=== PATIENT | female | born 1960 | race Caucasian/White ===

== ENCOUNTER 2019-05-06 19:33 | Emergency (ER) | payer BC, OTHER ==
[~2019-05-06] VITALS: Ht 165.1 cm; Wt 72.6 kg
[2019-05-06 19:45] VITALS: BP_SYST 138
--- NOTE | 2019-05-06 19:48 | NUR ---
Patient triaged and placed in waiting room. VSS and patient appears in no acute distress at this time. Accompanied by , awaiting available bed, and MD notified of need for MSE.
[2019-05-06 20:24] LABS: BASOPHILS # (AUTO) 0.1 K/uL (0.0-0.2); BASOPHILS % (AUTO) 0.5 % (0.0-2.0); EOSINOPHILS # (AUTO) 0.3 K/uL (0.0-0.4); EOSINOPHILS % (AUTO) 2.4 % (0.0-4.0); HEMATOCRIT 40.5 % (36-48); HEMOGLOBIN 13.4 g/dL (12.0-16.0); LYMPHOCYTES # (AUTO) 4.5 K/uL (1.0-5.5); LYMPHOCYTES % (AUTO) 34.2 % (20.5-51.5); MEAN CORPUSCULAR HEMOGLOBIN 31 pg (27-31); MEAN CORPUSCULAR HGB CONC 33 % (32-36); MEAN CORPUSCULAR VOLUME 93 fL (79.0-98.0); MONOCYTES # (AUTO) 0.7 K/uL (0.0-1.0); MONOCYTES % (AUTO) 5.6 % (1.7-9.3); NEUTROPHILS # (AUTO) 7.5 K/uL (1.8-7.7); NEUTROPHILS % (AUTO) 57.3 % (40.0-70.0); PLATELET COUNT (AUTO) 277 K/uL (130-430); RED BLOOD CELL COUNT(AUTO) 4.37 MIL/uL (4.2-6.2); RED CELL DISTRIBUTION WIDTH 14.1 % (9.0-15.0); WHITE BLOOD COUNT (AUTO) 13.1 K/uL (4.8-10.8)
[2019-05-06 20:49] LABS: CALCIUM 9.6 mg/dL (8.4-11.0); CREATININE 1.01 mg/dL (0.55-1.30); POTASSIUM 3.8 mmol/L (3.5-5.1)
[2019-05-06 20:53] LABS: ALBUMIN 3.5 g/dL (3.4-4.8); TOTAL BILIRUBIN 0.2 mg/dL (0.0-1.0)
--- NOTE | 2019-05-06 21:19 | NUR ---
Placed in room 02 . Placed on color television console monitor, blood pressure machine and pulse oximeter. To gown for exam. Side rails up. Report given to Windy CLEARY.
--- NOTE | 2019-05-06 21:20 | NUR ---
ER MD Alas at bedside for medical evaluation.
[2019-05-06] MEDS ORDERED: MORPHINE 4 MG/ML INJ. SYRINGE IVP ONE (21:30)
[2019-05-06] MEDS ORDERED: ONDANSETRON HCL 4 MG/2 ML VIAL IVP ONE (21:30)
[2019-05-06] MEDS ORDERED: DIPHENHYDRAMINE INJ 50 MG/ML VIAL IVP ONE (21:30)
--- NOTE | 2019-05-06 21:30 | NUR ---
Patient AOx4, ambulatory, presents to ER with complaint of NICOLE, N/V, and photosensitivity x 5 days. Patient states she also experienced chest tightness when she had the NICOLE. Patient medicated with Maxalt and Zofran with minimal improvement. Patient has hx of migraines and anxiety. No other symptoms or complaints.
--- NOTE | 2019-05-06 21:40 | NUR ---
# 20 gauge angiocath placed to LAC. Use of asceptic technique. Opsite placed over site. Blood return noted. Flushed with 10 cc of normal saline. No evidence of infiltration noted. Patient tolerated well.
--- NOTE | 2019-05-06 22:20 | NUR ---
No adverse reactions noted after medication administration. Will continue to monitor.
[2019-05-06 22:22] VITALS: BP_SYST 132
--- NOTE | 2019-05-06 22:22 | NUR ---
Patient given written and verbal discharge instructions and verbalizes understanding. ER MD discussed with patient the results and treatment provided. Patient in stable condition. ID arm band removed. IV catheter removed intact and dressing applied, no active bleeding. Rx of Imitrex given. Patient educated on pain management and to follow up with PMD. Pain Scale 0/10. Opportunity for questions provided and answered. Medication side effect fact sheet provided.
== END 2019-05-06 22:22 | disposition home or self-care (01) ==
LOC: SED 19:33
DX: G43.909 Migraine, unspecified, not intractable, without status migrainosus (principal)
CPT/HCPCS: 36415; 71045; 80053; 83880; 84484; 85025; 96374; 96375; 99284; J1200; J2270; J2405; 93005; 99283

== ENCOUNTER 2019-06-21 09:22 | Emergency (ER) | payer BC ==
[~2019-06-21] VITALS: Ht 165.1 cm; Wt 72.6 kg
[2019-06-21 09:22] VITALS: BP_SYST 147
[2019-06-21] MEDS ORDERED: LORazepam 2 MG/ML VIAL IVP ONE (10:00)
[2019-06-21] MEDS ORDERED: METOCLOPRAMIDE HCL 10 MG/2 ML VIAL IVP ONE (10:00)
[2019-06-21] MEDS ORDERED: KETOROLAC TROMETHAMINE 30 MG VIAL IVP ONE (10:00)
[2019-06-21 11:05] VITALS: BP_SYST 119
== END 2019-06-21 11:05 | disposition home or self-care (01) ==
LOC: SED 09:22
DX: G43.909 Migraine, unspecified, not intractable, without status migrainosus (principal); F41.9 Anxiety disorder, unspecified
CPT/HCPCS: 96374; 96375; 99283; J1885; J2060; J2765